=== PATIENT | female | born 1975 | race Caucasian/White ===

== ENCOUNTER 2021-01-24 22:00 | Emergency (ER) | payer BC ==
[~2021-01-24 22:00] MED LIST: COLACE 100MG C100 MG PO; GLUCOPHAGE500 MG PO; IBUPROFEN600 MG PO; LODINE CAP 300300 MG PO; METHYLDOPA500 MG PO; NORCO 5-325 TA1 EACH PO; VITAMIN D PO
[2021-01-24 22:35] LABS: HEMOGLOBIN 16.3 gm/dl (12.3-15.3); RED BLOOD COUNT 5.43 M/UL (4.00-5.10); WHITE BLOOD COUNT 11.7 K/UL (4.5-11.0)
[2021-01-24 23:01] LABS: BUN/CREATININE RATIO 19 (0-10)
[2021-01-25] MEDS ORDERED: COLCHICINE0.6 MG PO (00:50)
[2021-01-25] MEDS ORDERED: PREDNISONE 20 M20 MG PO (00:50)
== END 2021-01-25 01:00 | disposition home or self-care (01) ==
LOC: ER1 22:00
PROVIDERS: Physician Assistant
DX: M10.9 Gout, unspecified (principal); E11.9 Type 2 diabetes mellitus without complications; I10 Essential (primary) hypertension; Z90.49 Acquired absence of other specified parts of digestive tract; Z90.710 Acquired absence of both cervix and uterus; Z88.2 Allergy status to sulfonamides
CPT/HCPCS: 73564; 80053; 84550; 85025; 85652; 86140; 99283